=== PATIENT | female | born 1975 | race Caucasian/White ===

== ENCOUNTER 2016-08-26 14:50 | Inpatient (IN) | payer BC, OTHER ==
[2016-08-26] MEDS ORDERED: Sodium Chloride 0.9% 1,000 ML IV ONE (16:26)
[2016-08-26] MEDS ORDERED: HYDROmorphone 1 mg/mL 1mL Syr IVP STA (16:28)
--- NOTE | 2016-08-26 16:33 | ED Physician Chart ---
Chief Complaint/HPI - Patient Information Date Seen:: 08/26/16 Time Seen:: 16:00 Chief Complaint:: left buttocks lesion History of Present Illness:: has had very painful left buttocks lesion for one week. Had subjective fever. Pressure (like sitting) increases the pain. Allergies:: Allergies Allergy/AdvReac Type Severity Reaction Status Date / Time No Known Allergies Allergy Verified 08/26/16 15:12 Vitals:: Vital Signs - 8 hr 08/26/16 15:12 Temp 97.5 F HR 94 RR 22 BP 107/65 O2 Sat % 97 Historian:: Patient Review:: Nurse's Note Reviewed Review of Systems - Review of Systems General/Constitutional: Fever Skin: Skin lesions Head: No headache Eyes: No loss of vision ENT: No earache Neck: No neck pain Cardio Vascular: No chest pain Pulmonary: No SOB GI: No nausea, No vomiting G/U: No dysuria Musculoskeletal: No bone or joint pain Endocrine: No polyuria Psychiatric: No prior psych history Hematopoietic: No bruising Allergic/Immuno: No urticaria Neurological: No syncope Past Medical History - Past Medical History Past Medical History: No significant medical hx Family History: Diabetes Melitus Social History: Smoker, Alcohol, Other (social ETOH) Surgical History: Cholecystectomy Psychiatricy History: None Medication: None Physical Exam - Physical Examination General/Constitutional: Well-developed, well-nourished, Alert Other Gen/Cons comments:: mild distress Head: Atraumatic Eyes: Lids, conjuctiva normal Other Skin comments:: 8 cm of erythema, induration and extreme tenderness left buttocks ENMT: External ears, nose nl Neck: No nuchal rigidity Respiratory: Nl effort/Exclusion Cardio Vascular: RRR GI: No tenderness/rebounding/guarding : No CVA tenderness Extremities: Normal digits & nails Neuro/Psych: Alert/oriented, No focal deficits Misc: Normal back Assessment - Procedures Procedures:: skin cleanse betadine solution with betadine swabs; 1% xylocaine for focal; 1 cm incision with #11 scalpel; less than 1 mm pus out; probed gently with curved hemostat; irrigated with NS; packed loosely with 1/4 inch gauze; bulky dressing with 4x4s. ED Septic Shock - . Is Septic Shock (SBP<90, OR Lactate>4 mmol\L) present?: No - <6hrs of presentation: Vital Signs: Vital Signs - 8 hr 08/26/16 15:12 Temp 97.5 F HR 94 RR 22 BP 107/65 O2 Sat % 97 Reassessment (Disposition) - Reassessment Reassessment Condition:: Improved - Diagnosis Diagnosis:: abscess and cellulitis left hemibuttocks - Patient Disposition Admitted to:: Med/Surg Spoke to:: Blaise Gonsalez Admitting Medical Physician:: Blaise Gonsalez Condition at Disposition:: Stable, Improved
[2016-08-26] MEDS ORDERED: HYDROmorphone 2 mg/mL 1mL Vial ONE (16:40)
[2016-08-26 17:00] LABS: % BASOPHILS 0.7 % (0.0-2.0); % EOSINOPHILS 1.8 % (0.0-5.0); % LYMPHOCYTES 14.5 % (20.0-50.0); % MONOCYTES 8.4 % (2.0-10.0); % NEUTROPHILS 74.6 % (40.0-80.0); HEMATOCRIT 40.3 % (35.0-45.0); HEMOGLOBIN 13.8 gm/dL (11.7-15.5); MEAN CELL VOLUME 93.8 fl (81-100); MEAN CORPUSCULAR HGB CONC 34.1 pg (28.0-36.0); MEAN PLATELET VOLUME 8.4 fl; NEUTROPHILE ABSOLUTE 11.6 Th/cmm (1.8-8.0); PLATELET COUNT 242 Th/cmm (150-400); RED CELL DISTRIBUTION WIDTH 12.3 % (11.5-20.0); WHITE BLOOD COUNT 15.6 Th/cmm (4.8-10.8)
[2016-08-26 17:10] LABS: BUN - UREA NITROGEN 8 mg/dL (7-25); BUN/CREATININE RATIO 11.4; CALCIUM SERUM 9.2 mg/dL (8.6-10.3); CARBON DIOXIDE 25.9 mEq/L (21.0-31.0); CHLORIDE 104 mEq/L (98-107); CREATININE - SERUM 0.7 mg/dL (0.6-1.2); GLUCOSE 98 mg/dL (70-105); POTASSIUM SERUM 3.9 mEq/L (3.5-5.1); SODIUM SERUM 135 mEq/L (136-145)
[2016-08-26] MEDS: Sodium Chloride 0.9% 1,000 ML IV SCH (20:06)
[2016-08-26] MEDS: HYDROmorphone 1 mg/mL 1mL Syr IVP PRN ×2 (20:07→23:21)
[2016-08-26] MEDS ORDERED: HYDROmorphone 1 mg/mL 1mL Syr IVP PRN (23:16)
--- NOTE | 2016-08-27 02:37 | Admit Criteria Form ---
Admit Criteria Forms - Admit Criteria Diagnosis: CELLULITIS Clinical Indications for Admission to Inpatient Care (Place 'X' for any and all applicable criteria): Admission is indicated for ANY ONE of the following(1)(2)(3)(4)(5): [ ]I. Limb-threatening infection [ ]II. High-risk comorbid condition as indicated by ANY ONE of the following: [ ]a) Uncontrolled diabetes (eg, HbA1c greater than 10% (0.1)) [ ]b) Cirrhosis [ ]c) Neutropenia [ ]d) Asplenia [ ]e) Immunosuppression [ ]f) Symptomatic heart failure [ ]III. Failure of outpatient therapy as indicated by ALL of the following: [ ]a) Progression or no improvement after adequate trial (minimum of 48 hours, with longer period for stable lower extremity infection) [ ]b) Adequate antibiotic regimen as indicated by use of ANY ONE of the following: [ ]i) First-generation cephalosporin (e.g., cephalexin) [ ]ii) Antistaphylococcal penicillin (e.g., dicloxacillin) [ ]iii) Penicillin-allergic patient regimen (clindamycin, extended-spectrum fluoroquinolone, or doxycycline) [ ]iv) Resistant organism (eg, methicillin-resistant Staphylococcus aureus) regimen (6) [ ]c) Outpatient intravenous therapy regimen is not appropriate due to ANY ONE of the following. (7)(8)(9)(10): [ ]i) It was tried and was not successful (eg, progression of infection). [ ]ii) It is not available or cannot be arranged in a clinically appropriate time frame (e.g., the next day). [ ]iii) Clinical presentation (eg, acuity of infection, rapidity of progression, confirmed or suspected bacteremia) is judged to require ALL of the following: [ ]1) Immediate initiation of intravenous therapy ( eg, cannot wait for next day) [ ]2) Intensity of patient monitoring and observation (eg, vital sign measurement, checks for infection progression) that cannot be provided at other than inpatient level of care [ ]IV. Mental status changes [ ]V. Bacteremia [ ]. Hemodynamic instability [ ]VII. Suspected necrotizing soft tissue infection (e.g., gas in tissue)(11)( 12) [ ]VIII. Orbital infection (13)(14) [X ]IX. Associated surgical procedure (e.g., abscess drainage, debridement) not amenable to outpatient, emergency department, or observation care [ ]X. Cutaneous gangrene [ ]XI. High fever (temperature greater than 39.5 degrees C (103.1 degrees F) (oral)) not responsive to outpatient, emergency department, or observation care therapy [X ]XIII. Inpatient admission required rather than observation care (Also use Cellulitis: Observation Care as appropriate) because of ANY ONE of the following : [ ]a) Periorbital or perineal infection that is severe or worsening [ ]b) Severe pain requiring acute inpatient management [ ]c) IV fluid to replace significant ongoing (e.g., for over 24 hours) losses (greater than 3L/m2 per day) [ ]d) Compartment syndrome monitoring (17) [ ]e) Strict or protective (eg, laminar flow) isolation [ ]f) Urgent debridement or skin grafting [ ]g) Bone or joint debridement [ ]h) Immediate inpatient surgery [X ]i) Other condition, treatment or monitoring requiring inpatient admission Extended stay beyond goal length of stay may be needed for (1)(18): [ ]a) Necrotizing soft tissue infection or fasciitis [ ]b) Gram-negative infection [ ]c) Methicillin-resistant Staphylococcal aureus (MRSA) infection [ ]d) Peripheral venous insufficiency with cellulitis [ ]e) Extensive edema [ ]f) Sepsis or continued Hemodynamic instability [ ]g) Continued high fever or mental status change [ ]h) Bacteremia [ ]i) Active serious comorbid conditions ( eg, heart failure, renal insufficiency) The original [facility] [employer] content created by [facility] [employer] has been revised. The portions of the content which have been revised are identified through the use of italic text or in bold, and [facility] has neither reviewed nor approved the modified material. All other unmodified content is copyright [facility] Please see references footnoted in the original [facility] edition 2016 Admit Criteria Met?: Yes
[2016-08-27 06:48] LABS: MEAN CELL VOLUME 93.9 fl (81-100); MEAN CORPUSCULAR HEMOGLOBIN 32.8 pg (27.0-31.0); MEAN CORPUSCULAR HGB CONC 34.9 pg (28.0-36.0); MEAN PLATELET VOLUME 7.7 fl; PLATELET COUNT 213 Th/cmm (150-400); RED BLOOD COUNT 3.56 Mil/cmm (3.80-5.10); RED CELL DISTRIBUTION WIDTH 12.8 % (11.5-20.0); WHITE BLOOD COUNT 19.6 Th/cmm (4.8-10.8)
[2016-08-27 06:50] LABS: HEMATOCRIT 33.4 % (35.0-45.0); HEMOGLOBIN 11.7 gm/dL (11.7-15.5)
[2016-08-27 07:06] LABS: ALB/GLOB RATIO 1.1 (1.0-1.8); ALKALINE PHOSPHATASE 132 U/L (34-104); ANION GAP 3.1 (7.0-16.0); BILIRUBIN,TOTAL 0.8 mg/dL (0.3-1.0); BUN - UREA NITROGEN 4 mg/dL (7-25); CALCIUM SERUM 8.2 mg/dL (8.6-10.3); CARBON DIOXIDE 24.4 mEq/L (21.0-31.0); CHLORIDE 106 mEq/L (98-107); CREATININE - SERUM 0.5 mg/dL (0.6-1.2); GLUCOSE 120 mg/dL (70-105); POTASSIUM SERUM 3.5 mEq/L (3.5-5.1); SGOT 133 U/L (13-39); SGPT/ALT 202 U/L (7-52); SODIUM SERUM 130 mEq/L (136-145)
[2016-08-27 07:24] LABS: BAND NEUTROPHILE 5 % (0-10); NEUTROPHILS 77 % (40-80); TOTAL CELLS COUNTED 100
[2016-08-27 07:25] LABS: PLATELET ESTIMATE ADEQUATE (NORMAL); PLATELET MORPHOLOGY NORMAL (NORMAL)
[2016-08-27] MEDS ORDERED: HYDROmorphone 1 mg/mL 1mL Syr IVP PRN (08:32)
--- NOTE | 2016-08-27 08:48 | General Progress Note ---
Subjective - Review of Systems Service Date: 08/27/16 Subjective: I have pain Objective - Results Result Diagrams: 08/27/16 06:45 08/27/16 06:45 Recent Labs: Laboratory Last Values WBC 19.6 Th/cmm (4.8-10.8) H 08/27/16 06:45 RBC 3.56 Mil/cmm (3.80-5.10) L 08/27/16 06:45 Hgb 11.7 gm/dL (11.7-15.5) D 08/27/16 06:45 Hct 33.4 % (35.0-45.0) L D 08/27/16 06:45 MCV 93.9 fl (81-100) 08/27/16 06:45 MCH 32.8 pg (27.0-31.0) H 08/27/16 06:45 MCHC Differential 34.9 pg (28.0-36.0) 08/27/16 06:45 RDW 12.8 % (11.5-20.0) 08/27/16 06:45 Plt Count 213 Th/cmm (150-400) 08/27/16 06:45 MPV 7.7 fl 08/27/16 06:45 Neutrophils % 74.6 % (40.0-80.0) 08/26/16 16:43 Band Neutrophils % 5 % (0-10) 08/27/16 06:45 Lymphocytes % 14.5 % (20.0-50.0) L 08/26/16 16:43 Monocytes % 8.4 % (2.0-10.0) 08/26/16 16:43 Eosinophils % 1.8 % (0.0-5.0) 08/26/16 16:43 Basophils % 0.7 % (0.0-2.0) 08/26/16 16:43 Neutrophils (Manual) 77 % (40-80) 08/27/16 06:45 Lymphocytes 6 % (20-50) L 08/27/16 06:45 Monocytes 12 % (2-10) H 08/27/16 06:45 Platelet Estimate ADEQUATE (NORMAL) 08/27/16 06:45 Platelet Morphology NORMAL (NORMAL) 08/27/16 06:45 RBC Morph Micro Appear NORMAL (NORMAL) 08/27/16 06:45 Sodium 130 mEq/L (136-145) L 08/27/16 06:45 Potassium 3.5 mEq/L (3.5-5.1) 08/27/16 06:45 Chloride 106 mEq/L (98-107) 08/27/16 06:45 Carbon Dioxide 24.4 mEq/L (21.0-31.0) 08/27/16 06:45 Anion Gap 3.1 (7.0-16.0) L 08/27/16 06:45 BUN 4 mg/dL (7-25) L 08/27/16 06:45 Creatinine 0.5 mg/dL (0.6-1.2) L 08/27/16 06:45 Est GFR ( Amer) > 60.0 ml/min (>90) 08/27/16 06:45 Est GFR (Non-Af Amer) > 60.0 ml/min 08/27/16 06:45 BUN/Creatinine Ratio 8.0 08/27/16 06:45 Glucose 120 mg/dL (70-105) H 08/27/16 06:45 Calcium 8.2 mg/dL (8.6-10.3) L 08/27/16 06:45 Total Bilirubin 0.8 mg/dL (0.3-1.0) 08/27/16 06:45 AST 133 U/L (13-39) H 08/27/16 06:45 ALT 202 U/L (7-52) H 08/27/16 06:45 Alkaline Phosphatase 132 U/L (34-104) H 08/27/16 06:45 Total Protein 5.8 gm/dL (6.0-8.3) L 08/27/16 06:45 Albumin 3.0 gm/dL (3.7-5.3) L 08/27/16 06:45 Globulin 2.8 gm/dL 08/27/16 06:45 Albumin/Globulin Ratio 1.1 (1.0-1.8) 08/27/16 06:45 - Physical Exam Vitals and I&O: Vital Signs Temp 98.6 F 08/27/16 08:32 Pulse 90 08/27/16 08:32 Resp 18 08/27/16 08:32 BP 100/59 08/27/16 08:32 Pulse Ox 97 08/27/16 08:32 Intake & Output 08/26/16 08/27/16 08/27/16 18:59 06:59 18:59 Intake Total 500 Balance 500 Intake: Oral 500 Other: # Voids 2 Active Medications: Current Medications Acetaminophen (Tylenol) 650 mg PO Q6H PRN PRN Reason: Pain or Fever >101 Stop: 10/25/16 18:46 Last Admin: 08/26/16 23:11 Dose: 650 mg Hydromorphone HCl (Dilaudid) 2 mg IVP Q4HR PRN PRN Reason: Pain (Moderate) Stop: 10/25/16 23:15 Sodium Chloride (Nacl 0.9%) 1,000 mls @ 100 mls/hr IV .Q10H [facility] Stop: 10/25/16 18:59 Last Admin: 08/26/16 20:06 Dose: 100 mls/hr Vancomycin HCl 0.75 gm/ Sodium (Chloride) 250 mls @ 165 mls/hr IV Q8H [facility] Stop: 10/26/16 00:59 Last Admin: 08/27/16 03:18 Dose: 165 mls/hr Piperacillin Sod/Tazobactam (Sod 3.375 gm/ Sodium Chloride) 50 mls @ 100 mls/ hr IV Q6HR [facility] Stop: 10/26/16 08:44 Miscellaneous (Vancomycin Iv Per Pharmacy) 1 ea MC DAILY [facility] Stop: 10/26/16 08:59 Ondansetron HCl (Zofran) 4 mg IV Q6H PRN PRN Reason: Nausea / Vomiting Stop: 10/25/16 18:46 General: Alert, Oriented x3, Severe distress HEENT: Atraumatic Neck: Supple Cardiovascular: Regular rate Lungs: Clear to auscultation Abdomen: Bowel sounds Extremities: Other (Pain at movement of left leg, There is an open wound in left buttock with redness of 30 cm around) Neurological: Other (Non ambulatory now due to pain) Skin: Other (Redness of left buttock 30 cm round) Psych/Mental Status: Mental status NL Assessment/Plan - Problem List Patient Problems: All Active Problems LEFT BUTTOCK SKIN LESION (Acute) - Assessment Assessment: Patient is awake, in distress. Dx: abcess and cellulitis of left bucttock - Plan Plan: patient in [facility], and pain management
[2016-08-27] MEDS: Sodium Chloride 0.9% 1,000 ML IV SCH (10:10)
--- NOTE | 2016-08-27 12:06 | History & Physical ---
CHIEF COMPLAINT: Abscess in the left buttock. HISTORY OF PRESENT ILLNESS: This is the case of a 40-year-old female who referred 1 week ago started when ____ ampulla in the left buttock. She started to manipulate the ampulla ____ started go grow and became ____ painful, reason why patient came to ER for evaluation and treatment. PAST MEDICAL HISTORY: Noncontributory. FAMILY HISTORY: Diabetes mellitus. SOCIAL HISTORY: The patient smokes, drinks alcohol socially and marijuana occasionally. PAST SURGICAL HISTORY: Cholecystectomy. MEDICATIONS: None. REVIEW OF SYSTEMS: LUNGS: The patient denies shortness of breath. HEART: The patient denies chest pain. ABDOMEN: Unremarkable. EXTREMITIES: The patient referred intense pain in the left buttock. PHYSICAL EXAMINATION: GENERAL: Reveal fairly nourished and developed female, awake, alert, in distress secondary to pain. LUNGS: Bilateral air entry. No wheezing, no crackles. ABDOMEN: Soft, nontender, bowel sound present. EXTREMITIES: There is an abscess open when redness of the left ____ around with diameter of ____ cm around. Extremities, pain on movement of the left extremity. NEUROLOGIC: The patient is awake, alert, in acute distress secondary to pain. No neurological deficit at this moment. IMPRESSION: Sepsis secondary to abscess and cellulitis in the left buttock. PLAN: 1. The patient will be admitted in the medical surgical floor. 2. Dilaudid for pain. 3. Vancomycin. 4. Zosyn. 5. Regular diet. 6. CBC, CMP at a.m. JOB# [id number]
[2016-08-27] MEDS: HYDROmorphone 1 mg/mL 1mL Syr IVP PRN ×2 (16:20→20:56)
[2016-08-28] MEDS: HYDROmorphone 1 mg/mL 1mL Syr IVP PRN ×4 (03:49→20:39)
--- NOTE | 2016-08-28 05:11 | Consultation ---
Consult Note - Consult Note Service Date: 08/28/16 Referring Physician: Blaise Gonsalez Consult Note: PHYSICIAN Consultation Note: Date of Admission: 08/26/16 Purpose of Consultation: SEPSIS AND LEFT GLUTEAL ABSCESS. Chief Complaint: FEVER AND LEFT LEG PAIN. History of Present Illness: Patient AL SHETH was admitted to location Medical/Surgical Unit I with LEFT BUTTOCK ABSCESS. 40 y F with history of DM2 went to camping in [facility] recently. She developed pain and swelling in left buttock laterally over last 4 days and it got worse with unbearable pain. It was associated with fever. So, she came to the ED for further evaluation. On initial evaluation, her temperature was 97.5 degree F and her temperature went up to 100.3 degree F; and WBC Count was 15,600. I and D was performed in the ED and the small incision wound was packed. Sepsis w/u was performed and blood cultures grew GPC in clusters. She was started on vanco IV and zosyn. ID consult was called for further evaluation. Even after I and D was performed in the ED, her swelling, pain and redness had been getting worse. Allergies Allergy/AdvReac Type Severity Reaction Status Date / Time No Known Allergies Allergy Verified 08/26/16 15:12 Vital Signs Temp 98.3 F 08/28/16 04:00 Pulse 72 08/28/16 04:00 Resp 19 08/28/16 04:00 BP 109/52 08/28/16 04:00 Pulse Ox 98 08/28/16 04:00 Intake & Output 08/27/16 08/27/16 08/28/16 06:59 18:59 06:59 Intake Total 1750 600 Balance 1750 600 Intake: Intake, IV Amount 1250 600 Piperacillin Sodium/ 100 Tazobact 3.375 gm In Sodium Chloride 0.9% 50 ml @ 100 mls/hr IV Q6HR [facility] Rx#:[id number] Sodium Chloride 0.9% 1, 1000 000 ml @ 100 mls/hr IV . Q10H [facility] Rx#:[id number] Vancomycin HCl 0.75 gm In 250 500 Sodium Chloride 0.9% 250 ml @ 165 mls/hr IV Q8H [facility] Rx#:[id number] Oral 500 Other: # Voids 2 Laboratory Results - last 24 hr 08/27/16 08/27/16 06:45 06:45 WBC 19.6 H RBC 3.56 L Hgb 11.7 D Hct 33.4 L D MCV 93.9 MCH 32.8 H MCHC Differential 34.9 RDW 12.8 Plt Count 213 MPV 7.7 Band Neutrophils % 5 Neutrophils (Manual) 77 Lymphocytes 6 L Monocytes 12 H Platelet Estimate ADEQUATE Platelet Morphology NORMAL RBC Morph Micro Appear NORMAL Sodium 130 L Potassium 3.5 Chloride 106 Carbon Dioxide 24.4 Anion Gap 3.1 L BUN 4 L Creatinine 0.5 L Est GFR ( Amer) > 60.0 Est GFR (Non-Af Amer) > 60.0 BUN/Creatinine Ratio 8.0 Glucose 120 H Calcium 8.2 L Total Bilirubin 0.8 AST 133 H ALT 202 H Alkaline Phosphatase 132 H Total Protein 5.8 L Albumin 3.0 L Globulin 2.8 Albumin/Globulin Ratio 1.1 Home Medication Medication Instructions Recorded Type NK [No Home Meds] 08/26/16 History Current Medications Generic Name Dose Route Start Last Admin Trade Name Freq PRN Reason Stop Dose Admin Acetaminophen 650 mg 08/26/16 18:47 08/27/16 21:14 Tylenol PO 10/25/16 18:46 650 mg Q6H PRN Administration Pain or Fever >101 Hydromorphone HCl 2 mg 08/27/16 11:04 08/28/16 03:49 Dilaudid IVP 10/26/16 08:31 2 mg Q4H PRN Administration Pain (Moderate) Sodium Chloride 1,000 mls @ 100 mls/hr 08/26/16 19:00 08/27/16 10:10 Nacl 0.9% IV 10/25/16 18:59 100 mls/hr .Q10H [facility] Administration Vancomycin HCl 0.75 gm/ Sodium 250 mls @ 165 mls/hr 08/27/16 01:00 08/28/16 01:45 Chloride IV 10/26/16 00:59 165 mls/hr Q8H [facility] Administration Piperacillin Sod/Tazobactam 50 mls @ 100 mls/hr 08/27/16 12:00 08/28/16 00:30 Sod 3.375 gm/ Sodium Chloride IV 10/26/16 11:59 100 mls/hr Q6HR [facility] Administration Miscellaneous 1 ea 08/27/16 09:00 Vancomycin Iv Per Pharmacy 10/26/16 08:59 DAILY [facility] Ondansetron HCl 4 mg 08/26/16 18:47 08/27/16 19:18 Zofran IV 10/25/16 18:46 4 mg Q6H PRN Administration Nausea / Vomiting Review of Systems: A 12 point ROS was reviewed with the pertinent positive and negatives noted in the HPI. GENERAL/ CONSTITUTIONAL: c/o fever, denies any chills. denies any weakness. HEENT: Denies nay ear pain or discharge. denies sore throat. RS: Denies any cough, shortness of breath. CVS: Denies any CP, palpitations or leg swelling. GI: Denies any abdominal pains, diarrhea, or constipations. feeling nauseated. Gu: Denies any dysuria, or hematuria. [employer]: denies any headache, dizziness, focal weakness or seizures. MS: C/o left hip pains. SKIN: redness, and tender swelling of the left buttocks laterally. Past Medical History Depression No Anxiety No Social History Smoking Status Smoker, status unknown Family Medical History: Nonsignificant. Physical Exam: General: Well nousrished and well developed. HEENT: EOMI Bilaterally, PERRLA Bilaterally, Head is normocephalic, atraumatic on inspection. Cardio: +S1/S2 Auscultated, RRR, no murmurs/rubs/gallops noted Respiratory: Clear to Auscultate Bilaterally Abdominal: Soft, Nondistended, Nontender to palpation x 4 quadrants Extremities: No Edema noted in the lower extremities. She has tender swellinr with surround erythema around the small incision wound with sign of necrosis, around the wound, which is packed with iodoform. It is draining yellow pus. Neurological: Alert and Oriented x3, Cranial Nerves II-XII intact bilaterally, Gait Steady, No Focal Deficits noted. Assessment/Plan: 1. Staphylococcal sepsis likely from the left gluteal area. 2. Left gluteal abscess with cellulitis. 3. DM2. 4. Nausea 2/2 meds and sepsis. Recommendations/s: Continue vanco IV and Zosyn. Depending on the culture report decide final antibiotic therapy. Consult Dr Akins for evaluation and ? I and D. Rep[eat blood cultures and echo. wound cultures. Thank you Dr Gonsalez for invoving me in taking care of this patient. Signed, Andrea Domínguez M.D. [id number]
[2016-08-28 06:49] LABS: ALKALINE PHOSPHATASE 142 U/L (34-104); ANION GAP 7.1 (7.0-16.0); BUN - UREA NITROGEN 4 mg/dL (7-25); BUN/CREATININE RATIO 6.7; CALCIUM SERUM 8.5 mg/dL (8.6-10.3); CARBON DIOXIDE 25.4 mEq/L (21.0-31.0); CHLORIDE 104 mEq/L (98-107); CREATININE - SERUM 0.6 mg/dL (0.6-1.2); GLUCOSE 116 mg/dL (70-105); POTASSIUM SERUM 3.5 mEq/L (3.5-5.1); SGOT 55 U/L (13-39); SGPT/ALT 169 U/L (7-52); SODIUM SERUM 133 mEq/L (136-145)
[2016-08-28 07:22] LABS: HEMATOCRIT 30.9 % (35.0-45.0); HEMOGLOBIN 10.9 gm/dL (11.7-15.5); MEAN CELL VOLUME 93.2 fl (81-100); MEAN CORPUSCULAR HEMOGLOBIN 32.9 pg (27.0-31.0); MEAN CORPUSCULAR HGB CONC 35.3 pg (28.0-36.0); MEAN PLATELET VOLUME 8.8 fl; PLATELET COUNT 212 Th/cmm (150-400); RED BLOOD COUNT 3.31 Mil/cmm (3.80-5.10); RED CELL DISTRIBUTION WIDTH 12.5 % (11.5-20.0)
[2016-08-28 07:27] LABS: WHITE BLOOD COUNT 14.7 Th/cmm (4.8-10.8)
[2016-08-28] MEDS ORDERED: Morphine Sulfate 2 mg/mL 1mL Syr IVP PRN (08:08)
[2016-08-28] MEDS ORDERED: fentaNYL Citrate 100 mcg/2mL Vial ONE (08:38)
[2016-08-28] MEDS ORDERED: Midazolam 1mg/ml 2 ml vial IV ONE (08:38)
[2016-08-28] MEDS ORDERED: Meperidine 25 mg/mL 1mL Syr IVP PRN ×2 (08:57→10:14)
[2016-08-28] MEDS ORDERED: Lactated Ringer 1,000 ML IV SCH ×2 (09:00)
[2016-08-28] MEDS ORDERED: Meperidine 25 mg/mL 1mL Syr ONE (09:05)
--- NOTE | 2016-08-28 09:54 | Consultation ---
REFERRING PHYSICIAN: Dr. Gonsalez. REASON FOR CONSULTATION: Abscess, left buttock. Thank you for referring this patient to me. HISTORY OF PRESENT ILLNESS: This is a 40-year-old female who started having infection in the left buttocks about a week ago. She came in to the Emergency Room 2 days ago and incision and drainage was done on a limited basis because the patient could not tolerate pain. She has diabetes mellitus and drinks alcohol socially, marijuana occasionally and also smoker. PAST MEDICAL HISTORY: Cholecystectomy. LABORATORY STUDIES: Showed WBC elevation to 15,000. Rest of the labs are essentially normal. Chest x-ray and EKG as well. PHYSICAL EXAMINATION: GENERAL: The patient is well oriented. SKIN: There is a large abscess in the left buttocks measuring about 15 cm across with a central area that had been with an incision and iodoform gauze. IMPRESSION: 1. Buttocks, left abscess, large and complicated. 2. Diabetes mellitus, poor control. RECOMMENDATION: Incision and drainage of the abscess. We will do under IV sedation. JOB# [id number]
--- NOTE | 2016-08-28 09:57 | Operative Report ---
PREOPERATIVE DIAGNOSES: 1. Abscess complicated, left buttocks. 2. Diabetes mellitus with poor control. POSTOPERATIVE DIAGNOSES: 1. Abscess complicated, left buttocks. 2. Diabetes mellitus with poor control. OPERATION DONE: 1. Incision and drainage of abscess, left buttocks. 2. Culture and sensitivity. SURGEON: Mable Weller M.D. ANESTHESIA: MAC anesthesia. ANESTHESIOLOGIST: Marge Abrams M.D. DETAILS OF PROCEDURE: The patient was given IV sedation. The left buttocks was prepped with Betadine and draped in appropriate manner. Old iodoform gauze was removed and knife was used to enlarge incision to about 1 inch. Thick purulent material was drained. The finger was introduced to unroof all abscess cavity. Following hemostasis with cautery, irrigation with saline solution was carried out. The wound was then packed with iodoform gauze. The patient tolerated the procedure well. JOB# [id number]
[2016-08-28] MEDS: Sodium Chloride 0.9% 1,000 ML IV SCH (10:15)
--- NOTE | 2016-08-28 10:26 | Diagnostic Imaging Report ---
Abdominal ultrasound HISTORY: Abnormal liver function test The liver appears enlarged. No focal lesions. The gallbladder is not seen consistent with the patient's surgical history. No biliary dilatation. The pancreas cannot be seen due to bowel gas. No focal renal lesions. No hydronephrosis. Spleen is normal in size. No other retroperitoneal or intra-abdominal abnormalities. IMPRESSION: 1. Hepatomegaly 2. No other acute abnormalities 3. Nonvisualization of the gallbladder consistent with the patient's surgical history.
--- NOTE | 2016-08-28 10:31 | Diagnostic Imaging Report ---
Portable chest x-ray History: Shortness of breath Allowing for portable technique the heart size is normal. No focal pulmonary parenchymal processes. No hilar or mediastinal abnormalities. Impression: No acute abnormalities.
[2016-08-28 11:07] LABS: EOSINOPHIL 1 % (0-5); NEUTROPHILS 82 % (40-80); TOTAL CELLS COUNTED 100
[2016-08-28 11:08] LABS: PLATELET ESTIMATE ADEQUATE (NORMAL); PLATELET MORPHOLOGY NORMAL (NORMAL)
--- NOTE | 2016-08-28 12:08 | General Progress Note ---
Subjective - Review of Systems Service Date: 08/28/16 Subjective: Pain is less. Objective - Results Result Diagrams: 08/28/16 06:06 08/28/16 06:06 Recent Labs: Laboratory Last Values WBC 14.7 Th/cmm (4.8-10.8) H D 08/28/16 06:06 RBC 3.31 Mil/cmm (3.80-5.10) L 08/28/16 06:06 Hgb 10.9 gm/dL (11.7-15.5) L 08/28/16 06:06 Hct 30.9 % (35.0-45.0) L 08/28/16 06:06 MCV 93.2 fl (81-100) 08/28/16 06:06 MCH 32.9 pg (27.0-31.0) H 08/28/16 06:06 MCHC Differential 35.3 pg (28.0-36.0) 08/28/16 06:06 RDW 12.5 % (11.5-20.0) 08/28/16 06:06 Plt Count 212 Th/cmm (150-400) 08/28/16 06:06 MPV 8.8 fl 08/28/16 06:06 Neutrophils % 74.6 % (40.0-80.0) 08/26/16 16:43 Band Neutrophils % 5 % (0-10) 08/27/16 06:45 Lymphocytes % 14.5 % (20.0-50.0) L 08/26/16 16:43 Monocytes % 8.4 % (2.0-10.0) 08/26/16 16:43 Eosinophils % 1.8 % (0.0-5.0) 08/26/16 16:43 Basophils % 0.7 % (0.0-2.0) 08/26/16 16:43 Neutrophils (Manual) 82 % (40-80) H 08/28/16 06:06 Lymphocytes 10 % (20-50) L 08/28/16 06:06 Monocytes 7 % (2-10) 08/28/16 06:06 Eosinophils 1 % (0-5) 08/28/16 06:06 Platelet Estimate ADEQUATE (NORMAL) 08/28/16 06:06 Platelet Morphology NORMAL (NORMAL) 08/28/16 06:06 RBC Morph Micro Appear NORMAL (NORMAL) 08/28/16 06:06 Sodium 133 mEq/L (136-145) L 08/28/16 06:06 Potassium 3.5 mEq/L (3.5-5.1) 08/28/16 06:06 Chloride 104 mEq/L (98-107) 08/28/16 06:06 Carbon Dioxide 25.4 mEq/L (21.0-31.0) 08/28/16 06:06 Anion Gap 7.1 (7.0-16.0) 08/28/16 06:06 BUN 4 mg/dL (7-25) L 08/28/16 06:06 Creatinine 0.6 mg/dL (0.6-1.2) 08/28/16 06:06 Est GFR ( Amer) > 60.0 ml/min (>90) 08/28/16 06:06 Est GFR (Non-Af Amer) > 60.0 ml/min 08/28/16 06:06 BUN/Creatinine Ratio 6.7 08/28/16 06:06 Glucose 116 mg/dL (70-105) H 08/28/16 06:06 Calcium 8.5 mg/dL (8.6-10.3) L 08/28/16 06:06 Total Bilirubin 1.0 mg/dL (0.3-1.0) 08/28/16 06:06 AST 55 U/L (13-39) H 08/28/16 06:06 ALT 169 U/L (7-52) H 08/28/16 06:06 Alkaline Phosphatase 142 U/L (34-104) H 08/28/16 06:06 Total Protein 6.0 gm/dL (6.0-8.3) 08/28/16 06:06 Albumin 3.0 gm/dL (3.7-5.3) L 08/28/16 06:06 Globulin 3.0 gm/dL 08/28/16 06:06 Albumin/Globulin Ratio 1.0 (1.0-1.8) 08/28/16 06:06 Vancomycin Trough 8.4 ug/mL (10-20) L 08/28/16 10:10 Hep Bs Antigen Negative (Negative) 08/27/16 06:05 Hepatitis C Antibody <0.1 s/co ratio (0.0-0.9) 08/27/16 06:05 - Physical Exam Vitals and I&O: Vital Signs Temp 99.1 F 08/28/16 07:37 Pulse 91 08/28/16 07:37 Resp 17 08/28/16 08:00 BP 88/41 08/28/16 07:37 Pulse Ox 99 08/28/16 07:37 Intake & Output 08/27/16 08/28/16 08/28/16 18:59 06:59 18:59 Intake Total 600 1050 Balance 600 1050 Intake: Intake, IV Amount 600 1050 Piperacillin Sodium/ 100 50 Tazobact 3.375 gm In Sodium Chloride 0.9% 50 ml @ 100 mls/hr IV Q6HR [facility] Rx#:[id number] Sodium Chloride 0.9% 1, 1000 000 ml @ 100 mls/hr IV . Q10H [facility] Rx#:[id number] Vancomycin HCl 0.75 gm In 500 Sodium Chloride 0.9% 250 ml @ 165 mls/hr IV Q8H [facility] Rx#:[id number] Active Medications: Current Medications Acetaminophen (Tylenol) 650 mg PO Q6H PRN PRN Reason: Pain or Fever >101 Stop: 10/25/16 18:46 Last Admin: 08/27/16 21:14 Dose: 650 mg Hydromorphone HCl (Dilaudid) 1 mg IVP Q4HR PRN PRN Reason: severe pain. Stop: 10/27/16 08:17 Last Admin: 08/28/16 10:24 Dose: 1 mg Sodium Chloride (Nacl 0.9%) 1,000 mls @ 100 mls/hr IV .Q10H [facility] Stop: 10/25/16 18:59 Last Admin: 08/28/16 10:15 Dose: 100 mls/hr Piperacillin Sod/Tazobactam (Sod 3.375 gm/ Sodium Chloride) 50 mls @ 100 mls/ hr IV Q6HR [facility] Stop: 10/26/16 11:59 Last Admin: 08/28/16 06:05 Dose: 100 mls/hr Vancomycin HCl 0.75 gm/ Sodium (Chloride) 250 mls @ 165 mls/hr IV Q8HR@0300, 1100,1900 [facility] Stop: 10/27/16 10:59 Lactated Ringer's (Lactated Ringer) 1,000 mls @ 0 mls/hr IV .Q0M [facility] PRN Reason: TKO Stop: 08/29/16 08:59 Lactated Ringer's (Lactated Ringer) 1,000 mls @ 0 mls/hr IV .Q0M [facility] PRN Reason: TKO Stop: 08/29/16 08:59 Meperidine HCl (Demerol) 25 mg IVP Q24HR PRN PRN Reason: post operative pain Stop: 08/29/16 08:56 Miscellaneous (Vancomycin Iv Per Pharmacy) 1 ea [facility] DAILY [facility] Stop: 10/26/16 08:59 Morphine Sulfate (Morphine) 1 mg IVP Q4HR PRN PRN Reason: breakthrough pain. Stop: 10/27/16 08:07 Ondansetron HCl (Zofran) 4 mg IV Q6H PRN PRN Reason: Nausea / Vomiting Stop: 10/25/16 18:46 Last Admin: 08/27/16 19:18 Dose: 4 mg Ondansetron HCl (Zofran) 4 mg IV Q24HR PRN PRN Reason: POST OPERATIVE N/V Stop: 10/27/16 08:56 General: Alert, Oriented x3, Mild distress HEENT: Atraumatic Neck: Supple Cardiovascular: Regular rate Lungs: Clear to auscultation Abdomen: Bowel sounds, Soft Extremities: Other (No edema) Neurological: Other (Non ambulatory at this moment) Skin: Other (There is an surgical wound cover with melanie. Redness around wound) Psych/Mental Status: Mental status NL Assessment/Plan - Problem List Patient Problems: All Active Problems LEFT BUTTOCK SKIN LESION (Acute) - Assessment Assessment: Patient is awake, in moderate distress due to pain. Dx: abcess and cellulitis of left bucttock, DM - Plan Plan: Abcess was drained by surgeon. WBC improved. patient in Vanco, Sozyn, and pain management
[2016-08-28] MEDS: INSULIN ASPART SLIDING SCALE 100 UNITS/ML UNIT SUBQ SCH ×2 (16:13→23:28)
[2016-08-28 22:49] LABS: INR 0.98 (0.5-1.4); PROTHROMBIN TIME (TEST) 9.7 SECONDS (9.5-11.5)
[2016-08-29] MEDS: HYDROmorphone 1 mg/mL 1mL Syr IVP PRN ×6 (00:27→23:39)
[2016-08-29] MEDS: Sodium Chloride 0.9% 1,000 ML IV SCH (04:59)
[2016-08-29 06:26] LABS: % BASOPHILS 0.4 % (0.0-2.0); % EOSINOPHILS 2.5 % (0.0-5.0); % LYMPHOCYTES 17.2 % (20.0-50.0); % MONOCYTES 8.1 % (2.0-10.0); % NEUTROPHILS 71.8 % (40.0-80.0); HEMATOCRIT 29.1 % (35.0-45.0); HEMOGLOBIN 10.3 gm/dL (11.7-15.5); MEAN CELL VOLUME 93.2 fl (81-100); MEAN CORPUSCULAR HEMOGLOBIN 32.8 pg (27.0-31.0); MEAN CORPUSCULAR HGB CONC 35.3 pg (28.0-36.0); PLATELET COUNT 226 Th/cmm (150-400); RED BLOOD COUNT 3.13 Mil/cmm (3.80-5.10); RED CELL DISTRIBUTION WIDTH 12.7 % (11.5-20.0)
[2016-08-29 06:44] LABS: ALKALINE PHOSPHATASE 175 U/L (34-104); ANION GAP 9.6 (7.0-16.0); BILIRUBIN,TOTAL 0.7 mg/dL (0.3-1.0); BUN - UREA NITROGEN 4 mg/dL (7-25); BUN/CREATININE RATIO 5.7; CALCIUM SERUM 8.5 mg/dL (8.6-10.3); CARBON DIOXIDE 25.1 mEq/L (21.0-31.0); CHLORIDE 106 mEq/L (98-107); CREATININE - SERUM 0.7 mg/dL (0.6-1.2); GLUCOSE 93 mg/dL (70-105); POTASSIUM SERUM 3.7 mEq/L (3.5-5.1); SGOT 42 U/L (13-39); SGPT/ALT 140 U/L (7-52); SODIUM SERUM 137 mEq/L (136-145)
[2016-08-29 07:09] LABS: WHITE BLOOD COUNT 11.1 Th/cmm (4.8-10.8)
--- NOTE | 2016-08-29 08:12 | General Progress Note ---
Subjective - Review of Systems Service Date: 08/29/16 Subjective: I feel better Objective - Results Result Diagrams: 08/29/16 06:11 08/29/16 06:11 Recent Labs: Laboratory Last Values WBC 11.1 Th/cmm (4.8-10.8) H D 08/29/16 06:11 RBC 3.13 Mil/cmm (3.80-5.10) L 08/29/16 06:11 Hgb 10.3 gm/dL (11.7-15.5) L 08/29/16 06:11 Hct 29.1 % (35.0-45.0) L 08/29/16 06:11 MCV 93.2 fl (81-100) 08/29/16 06:11 MCH 32.8 pg (27.0-31.0) H 08/29/16 06:11 MCHC Differential 35.3 pg (28.0-36.0) 08/29/16 06:11 RDW 12.7 % (11.5-20.0) 08/29/16 06:11 Plt Count 226 Th/cmm (150-400) 08/29/16 06:11 MPV 8.0 fl 08/29/16 06:11 Neutrophils % 71.8 % (40.0-80.0) 08/29/16 06:11 Band Neutrophils % 5 % (0-10) 08/27/16 06:45 Lymphocytes % 17.2 % (20.0-50.0) L 08/29/16 06:11 Monocytes % 8.1 % (2.0-10.0) 08/29/16 06:11 Eosinophils % 2.5 % (0.0-5.0) 08/29/16 06:11 Basophils % 0.4 % (0.0-2.0) 08/29/16 06:11 Neutrophils (Manual) 82 % (40-80) H 08/28/16 06:06 Lymphocytes 10 % (20-50) L 08/28/16 06:06 Monocytes 7 % (2-10) 08/28/16 06:06 Eosinophils 1 % (0-5) 08/28/16 06:06 Platelet Estimate ADEQUATE (NORMAL) 08/28/16 06:06 Platelet Morphology NORMAL (NORMAL) 08/28/16 06:06 RBC Morph Micro Appear NORMAL (NORMAL) 08/28/16 06:06 PT 9.7 SECONDS (9.5-11.5) 08/28/16 07:59 INR 0.98 (0.5-1.4) 08/28/16 07:59 PTT (Actin FS) 30.0 SECONDS (26.0-38.0) 08/28/16 07:59 Sodium 137 mEq/L (136-145) 08/29/16 06:11 Potassium 3.7 mEq/L (3.5-5.1) 08/29/16 06:11 Chloride 106 mEq/L (98-107) 08/29/16 06:11 Carbon Dioxide 25.1 mEq/L (21.0-31.0) 08/29/16 06:11 Anion Gap 9.6 (7.0-16.0) 08/29/16 06:11 BUN 4 mg/dL (7-25) L 08/29/16 06:11 Creatinine 0.7 mg/dL (0.6-1.2) 08/29/16 06:11 Est GFR ( Amer) > 60.0 ml/min (>90) 08/29/16 06:11 Est GFR (Non-Af Amer) > 60.0 ml/min 08/29/16 06:11 BUN/Creatinine Ratio 5.7 08/29/16 06:11 Glucose 93 mg/dL (70-105) 08/29/16 06:11 POC Glucose 110 MG/DL (70 - 105) H 08/28/16 23:22 Calcium 8.5 mg/dL (8.6-10.3) L 08/29/16 06:11 Total Bilirubin 0.7 mg/dL (0.3-1.0) 08/29/16 06:11 AST 42 U/L (13-39) H 08/29/16 06:11 ALT 140 U/L (7-52) H 08/29/16 06:11 Alkaline Phosphatase 175 U/L (34-104) H 08/29/16 06:11 Total Protein 5.6 gm/dL (6.0-8.3) L 08/29/16 06:11 Albumin 2.8 gm/dL (3.7-5.3) L 08/29/16 06:11 Globulin 2.8 gm/dL 08/29/16 06:11 Albumin/Globulin Ratio 1.0 (1.0-1.8) 08/29/16 06:11 Vancomycin Trough 9.9 ug/mL (10-20) L 08/29/16 02:00 Hep Bs Antigen Negative (Negative) 08/27/16 06:05 Hepatitis C Antibody <0.1 s/co ratio (0.0-0.9) 08/27/16 06:05 - Physical Exam Vitals and I&O: Vital Signs Temp 97.4 F 08/29/16 08:00 Pulse 86 08/29/16 08:00 Resp 19 08/29/16 08:00 BP 99/60 08/29/16 08:00 Pulse Ox 100 08/29/16 08:00 Intake & Output 08/28/16 08/29/16 08/29/16 18:59 06:59 18:59 Intake Total 350 1350 Output Total 300 Balance 350 1050 Weight (lbs) 68.039 kg Intake: Intake, IV Amount 350 1300 Piperacillin Sodium/ 100 50 Tazobact 3.375 gm In Sodium Chloride 0.9% 50 ml @ 100 mls/hr IV Q6HR [facility] Rx#:[id number] Sodium Chloride 0.9% 1, 1000 000 ml @ 100 mls/hr IV . Q10H [facility] Rx#:[id number] Vancomycin HCl 0.75 gm In 250 250 Sodium Chloride 0.9% 250 ml @ 165 mls/hr IV Q8HR@ 0300,1100,1900 [facility] Rx#: [id number] Oral 50 Output: Urine 300 Active Medications: Current Medications Acetaminophen (Tylenol) 650 mg PO Q6H PRN PRN Reason: Pain or Fever >101 Stop: 10/25/16 18:46 Last Admin: 08/29/16 06:48 Dose: 650 mg Hydromorphone HCl (Dilaudid) 1 mg IVP Q4HR PRN PRN Reason: severe pain. Stop: 10/27/16 08:17 Last Admin: 08/29/16 05:00 Dose: 1 mg Sodium Chloride (Nacl 0.9%) 1,000 mls @ 100 mls/hr IV .Q10H [facility] Stop: 10/25/16 18:59 Last Admin: 08/29/16 04:59 Dose: 100 mls/hr Piperacillin Sod/Tazobactam (Sod 3.375 gm/ Sodium Chloride) 50 mls @ 100 mls/ hr IV Q6HR [facility] Stop: 10/26/16 11:59 Last Admin: 08/29/16 06:11 Dose: 100 mls/hr Vancomycin HCl 0.75 gm/ Sodium (Chloride) 250 mls @ 165 mls/hr IV Q8HR@0300, 1100,1900 [facility] Stop: 10/27/16 10:59 Last Admin: 08/29/16 06:38 Dose: 165 mls/hr Lactated Ringer's (Lactated Ringer) 1,000 mls @ 0 mls/hr IV .Q0M [facility] PRN Reason: TKO Stop: 08/29/16 08:59 Lactated Ringer's (Lactated Ringer) 1,000 mls @ 0 mls/hr IV .Q0M [facility] PRN Reason: TKO Stop: 08/29/16 08:59 Insulin Aspart (Novolog Insulin Sliding Scale) 0 units SUBQ ACHS [facility] PRN Reason: Protocol Stop: 10/27/16 16:29 Last Admin: 08/28/16 23:28 Dose: Not Given Meperidine HCl (Demerol) 25 mg IVP Q24HR PRN PRN Reason: post operative pain Stop: 08/29/16 08:56 Miscellaneous (Vancomycin Iv Per Pharmacy) 1 ea [facility] DAILY [facility] Stop: 10/26/16 08:59 Morphine Sulfate (Morphine) 1 mg IVP Q4HR PRN PRN Reason: breakthrough pain. Stop: 10/27/16 08:07 Last Admin: 08/28/16 14:10 Dose: 1 mg Ondansetron HCl (Zofran) 4 mg IV Q6H PRN PRN Reason: Nausea / Vomiting Stop: 10/25/16 18:46 Last Admin: 08/29/16 05:00 Dose: 4 mg Ondansetron HCl (Zofran) 4 mg IV Q24HR PRN PRN Reason: POST OPERATIVE N/V Stop: 10/27/16 08:56 General: Alert, Oriented x3, Cooperative HEENT: Atraumatic Neck: Supple Cardiovascular: Regular rate Lungs: Clear to auscultation Abdomen: Bowel sounds, Soft Extremities: Other (No edema) Neurological: Other (Unstable gait) Skin: Other (Redness in left buttock improving surgical wound cover with melanie) Psych/Mental Status: Mental status NL Assessment/Plan - Problem List Patient Problems: All Active Problems LEFT BUTTOCK SKIN LESION (Acute) - Assessment Assessment: Patient is awake, Alert, pain is less. Dx: abcess and cellulitis of left bucttock, DM - Plan Plan: Abcess was drained by surgeon. WBC improved. patient in Vanco, Sozyn, and pain management
[2016-08-29] MEDS: INSULIN ASPART SLIDING SCALE 100 UNITS/ML UNIT SUBQ SCH ×2 (11:35→17:15)
--- NOTE | 2016-08-29 19:31 | Cardiology ---
ECHOCARDIOGRAM REPORT: The patient of Dr. Gonsalez. M-MODE ECHOCARDIOGRAM: Mitral Valve: Anterior leaflet of the mitral valve shows normal excursion, EF velocity. Posterior leaflet of the mitral valve shows normal excursion. Left ventricular posterior wall shows increased thickness, normal excursion. Interventricular septum shows increased thickness, normal excursion, hypertrophy of the left ventricle, ejection fraction 60%. Left atrium normal. Aortic root shows normal dimension, normal excursion of aortic leaflets. CONCLUSION: Hypertrophy of the left ventricle, ejection fraction 60%. 2D ECHO: Long axis view showed normal-sized left ventricle with hypertrophy of the left ventricle. Left atrium normal. Aortic root shows normal dimension, normal excursion of aortic leaflets. Short axis view of mitral valve normal. Short axis view of aortic valve normal. Apical four-chamber view showed normal-sized left ventricle with hypertrophy of the left ventricle. Left atrium normal. Right ventricular cavity, right atrium normal. No pericardial effusion. CONCLUSION: Hypertrophy of the left ventricle, ejection fraction 60%. Doppler study shows prominent A wave consistent with poor compliance of left ventricle with mild tricuspid regurgitation. [facility]# [id number]
[2016-08-30] MEDS: HYDROmorphone 1 mg/mL 1mL Syr IVP PRN ×3 (03:59→11:33)
[2016-08-30] MEDS: Sodium Chloride 0.9% 1,000 ML IV SCH (04:05)
[2016-08-30 06:56] LABS: % BASOPHILS 0.5 % (0.0-2.0); % EOSINOPHILS 3.7 % (0.0-5.0); % LYMPHOCYTES 23.9 % (20.0-50.0); % MONOCYTES 7.3 % (2.0-10.0); % NEUTROPHILS 64.6 % (40.0-80.0); HEMATOCRIT 29.8 % (35.0-45.0); HEMOGLOBIN 10.4 gm/dL (11.7-15.5); MEAN CELL VOLUME 93.6 fl (81-100); MEAN CORPUSCULAR HEMOGLOBIN 32.8 pg (27.0-31.0); MEAN PLATELET VOLUME 8.5 fl; PLATELET COUNT 247 Th/cmm (150-400); RED BLOOD COUNT 3.19 Mil/cmm (3.80-5.10); RED CELL DISTRIBUTION WIDTH 12.8 % (11.5-20.0); WHITE BLOOD COUNT 9.2 Th/cmm (4.8-10.8)
[2016-08-30 07:11] LABS: ALKALINE PHOSPHATASE 219 U/L (34-104); ANION GAP 9.8 (7.0-16.0); BILIRUBIN,TOTAL 0.5 mg/dL (0.3-1.0); BUN - UREA NITROGEN 4 mg/dL (7-25); BUN/CREATININE RATIO 5.7; CALCIUM SERUM 8.6 mg/dL (8.6-10.3); CARBON DIOXIDE 23.8 mEq/L (21.0-31.0); CHLORIDE 108 mEq/L (98-107); CREATININE - SERUM 0.7 mg/dL (0.6-1.2); GLUCOSE 87 mg/dL (70-105); POTASSIUM SERUM 3.6 mEq/L (3.5-5.1); SGOT 63 U/L (13-39); SGPT/ALT 163 U/L (7-52); SODIUM SERUM 138 mEq/L (136-145)
[2016-08-30] MEDS: INSULIN ASPART SLIDING SCALE 100 UNITS/ML UNIT SUBQ SCH ×3 (07:52→18:06)
--- NOTE | 2016-08-30 13:37 | Infectious Disease Prog Note ---
Infectious Disease Subjective - Review of Systems Service Date: 08/30/16 Subjective: Patient feels better, there is no fever. Still c/o pain in the left hip. Infectious Disease Objective - Results Result Diagrams: 08/30/16 05:29 08/30/16 05:29 Recent Labs: Laboratory Last Values WBC 9.2 Th/cmm (4.8-10.8) 08/30/16 05:29 RBC 3.19 Mil/cmm (3.80-5.10) L 08/30/16 05:29 Hgb 10.4 gm/dL (11.7-15.5) L 08/30/16 05:29 Hct 29.8 % (35.0-45.0) L 08/30/16 05:29 MCV 93.6 fl (81-100) 08/30/16 05:29 MCH 32.8 pg (27.0-31.0) H 08/30/16 05:29 MCHC Differential 35.0 pg (28.0-36.0) 08/30/16 05:29 RDW 12.8 % (11.5-20.0) 08/30/16 05:29 Plt Count 247 Th/cmm (150-400) 08/30/16 05:29 MPV 8.5 fl 08/30/16 05:29 Neutrophils % 64.6 % (40.0-80.0) 08/30/16 05:29 Band Neutrophils % 5 % (0-10) 08/27/16 06:45 Lymphocytes % 23.9 % (20.0-50.0) 08/30/16 05:29 Monocytes % 7.3 % (2.0-10.0) 08/30/16 05:29 Eosinophils % 3.7 % (0.0-5.0) 08/30/16 05:29 Basophils % 0.5 % (0.0-2.0) 08/30/16 05:29 Neutrophils (Manual) 82 % (40-80) H 08/28/16 06:06 Lymphocytes 10 % (20-50) L 08/28/16 06:06 Monocytes 7 % (2-10) 08/28/16 06:06 Eosinophils 1 % (0-5) 08/28/16 06:06 Platelet Estimate ADEQUATE (NORMAL) 08/28/16 06:06 Platelet Morphology NORMAL (NORMAL) 08/28/16 06:06 RBC Morph Micro Appear NORMAL (NORMAL) 08/28/16 06:06 PT 9.7 SECONDS (9.5-11.5) 08/28/16 07:59 INR 0.98 (0.5-1.4) 08/28/16 07:59 PTT (Actin FS) 30.0 SECONDS (26.0-38.0) 08/28/16 07:59 Sodium 138 mEq/L (136-145) 08/30/16 05:29 Potassium 3.6 mEq/L (3.5-5.1) 08/30/16 05:29 Chloride 108 mEq/L (98-107) H 08/30/16 05:29 Carbon Dioxide 23.8 mEq/L (21.0-31.0) 08/30/16 05:29 Anion Gap 9.8 (7.0-16.0) 08/30/16 05:29 BUN 4 mg/dL (7-25) L 08/30/16 05:29 Creatinine 0.7 mg/dL (0.6-1.2) 08/30/16 05:29 Est GFR ( Amer) > 60.0 ml/min (>90) 08/30/16 05:29 Est GFR (Non-Af Amer) > 60.0 ml/min 08/30/16 05:29 BUN/Creatinine Ratio 5.7 08/30/16 05:29 Glucose 87 mg/dL (70-105) 08/30/16 05:29 POC Glucose 112 MG/DL (70 - 105) H 08/30/16 11:06 Calcium 8.6 mg/dL (8.6-10.3) 08/30/16 05:29 Total Bilirubin 0.5 mg/dL (0.3-1.0) 08/30/16 05:29 AST 63 U/L (13-39) H 08/30/16 05:29 ALT 163 U/L (7-52) H 08/30/16 05:29 Alkaline Phosphatase 219 U/L (34-104) H 08/30/16 05:29 Total Protein 5.7 gm/dL (6.0-8.3) L 08/30/16 05:29 Albumin 2.8 gm/dL (3.7-5.3) L 08/30/16 05:29 Globulin 2.9 gm/dL 08/30/16 05:29 Albumin/Globulin Ratio 1.0 (1.0-1.8) 08/30/16 05:29 Vancomycin Trough 9.9 ug/mL (10-20) L 08/29/16 02:00 Hep Bs Antigen Negative (Negative) 08/27/16 06:05 Hepatitis C Antibody <0.1 s/co ratio (0.0-0.9) 08/27/16 06:05 - Physical Exam Vitals and I&O: Vital Signs Temp 98.7 F 08/30/16 00:00 Pulse 74 08/30/16 00:00 Resp 19 08/30/16 08:00 BP 111/64 08/30/16 00:00 Pulse Ox 96 08/30/16 00:00 Intake & Output 08/29/16 08/30/16 08/30/16 18:59 06:59 18:59 Intake Total 1600 670 Output Total 300 Balance 1600 370 Intake: Intake, IV Amount 1600 550 Piperacillin Sodium/ 100 50 Tazobact 3.375 gm In Sodium Chloride 0.9% 50 ml @ 100 mls/hr IV Q6HR [facility] Rx#:[id number] Sodium Chloride 0.9% 1, 1000 000 ml @ 100 mls/hr IV . Q10H [facility] Rx#:[id number] Vancomycin HCl 0.75 gm In 500 500 Sodium Chloride 0.9% 250 ml @ 165 mls/hr IV Q8HR@ 0300,1100,1900 [facility] Rx#: [id number] Oral 120 Output: Urine 300 Active Medications: Current Medications Acetaminophen (Tylenol) 650 mg PO Q6H PRN PRN Reason: Pain or Fever >101 Stop: 10/25/16 18:46 Last Admin: 08/29/16 06:48 Dose: 650 mg Hydromorphone HCl (Dilaudid) 1 mg IVP Q4HR PRN PRN Reason: severe pain. Stop: 10/27/16 08:17 Last Admin: 08/30/16 11:33 Dose: 1 mg Sodium Chloride (Nacl 0.9%) 1,000 mls @ 100 mls/hr IV .Q10H [facility] Stop: 10/25/16 18:59 Last Admin: 08/30/16 04:05 Dose: 100 mls/hr Piperacillin Sod/Tazobactam (Sod 3.375 gm/ Sodium Chloride) 50 mls @ 100 mls/ hr IV Q6HR [facility] Stop: 10/26/16 11:59 Last Admin: 08/30/16 07:15 Dose: 100 mls/hr Vancomycin HCl 1 gm/ Sodium (Chloride) 250 mls @ 165 mls/hr IV ONCE ONE Stop: 08/30/16 16:30 Vancomycin HCl 1 gm/ Sodium (Chloride) 250 mls @ 165 mls/hr IV Q8H [facility] Stop: 10/30/16 00:00 Insulin Aspart (Novolog Insulin Sliding Scale) 0 units SUBQ ACHS [facility] PRN Reason: Protocol Stop: 10/27/16 16:29 Last Admin: 08/30/16 07:52 Dose: Not Given Miscellaneous (Vancomycin Iv Per Pharmacy) 1 ea [facility] DAILY [facility] Stop: 10/26/16 08:59 Morphine Sulfate (Morphine) 1 mg IVP Q4HR PRN PRN Reason: breakthrough pain. Stop: 10/27/16 08:07 Last Admin: 08/28/16 14:10 Dose: 1 mg Ondansetron HCl (Zofran) 4 mg IV Q6H PRN PRN Reason: Nausea / Vomiting Stop: 10/25/16 18:46 Last Admin: 08/30/16 07:11 Dose: 4 mg Ondansetron HCl (Zofran) 4 mg IV Q24HR PRN PRN Reason: POST OPERATIVE N/V Stop: 10/27/16 08:56 General: no acute distress, well developed, well nourished HEENT: atraumatic, normocephalic, PERRLA, EOMI Neck: supple, no thyromegaly Cardiovascular: S1S2, no regular Lungs: no clear to auscultation bilaterally, no clear to percussion Abdomen: soft, no tender, no distended Extremities: other (dressing in left gluteal area.), no cyanosis, no clubbing, no edema Neurological: awake, alert, oriented Skin: intact - Procedures Procedures: Procedures Procedure Code Date DRAINAGE OF BUTTOCK SUBCU/FASCIA, OPEN APPROACH [id number] 08/26/16 Infectious Disease Assmt/Plan - Problem List Patient Problems: All Active Problems LEFT BUTTOCK SKIN LESION (Acute) - Assessment Assessment: 1. MSSA sepsis. 2. Left gluteal abscess. 3. DM2. - Plan Plan: Change antibiotics to nafcillin.
[2016-08-30] MEDS ORDERED: Nafcillin 2 GM in Sodium Chloride 0.9% 100 ML IV SCH (15:00)
--- NOTE | 2016-09-27 22:05 | Discharge Summary ---
CHIEF COMPLAINT: Abscess in the left buttock. HISTORY OF PRESENT ILLNESS: This is the case of a 40-year-old female, who started with an ampulla in the left buttock; she manipulated the ampulla and it started to grow and became an abscess and really painful. The patient decided to come to ER for evaluation and treatment. HOSPITAL COURSE AND TREATMENT: This patient was admitted in the medical surgical floor. She was started on IV normal saline, IV Zosyn, IV vancomycin, regular diet. Consult with ID Dr. Andrea Domínguez and consult with surgery Dr. Akins was done. The surgeon Dr. Akins did an I and D of the abscess and with this treatment and after 5 days in the hospital, it was considered the patient received the maximum benefit of hospitalization and she can be sent home to continue treatment with primary care physician. On the day of the discharge, the patient was awake, alert, in no acute distress. CONSULTANTS IN THIS CASE: ID, Dr. Andrea Domínguez and Dr. Akins, Surgery. DISPOSITION: The patient is sent home to continue treatment with primary care physician. DIAGNOSIS: Abscess in the buttock. JOB# [id number]
== END 2016-08-30 15:30 | disposition home or self-care (01) | DRG 872 ==
LOC: ER 14:50 → MSI 18:00
PROVIDERS: ADMIT General Practice; ATTEND General Practice
PROC: 0Y910ZZ Drainage of Left Buttock, Open Approach (ICD-10-PCS; principal; 2016-08-28)
DX: A41.01 Sepsis due to Methicillin susceptible Staphylococcus aureus (principal); E11.65 Type 2 diabetes mellitus with hyperglycemia; L02.31 Cutaneous abscess of buttock; L03.317 Cellulitis of buttock; F17.200 Nicotine dependence, unspecified, uncomplicated; T50.905A Adverse effect of unspecified drugs, medicaments and biological substances, initial encounter; R11.0 Nausea; Z83.3 Family history of diabetes mellitus; Z90.49 Acquired absence of other specified parts of digestive tract; Z72.89 Other problems related to lifestyle; Y92.89 Other specified places as the place of occurrence of the external cause
CPT/HCPCS: 10060; 36415-UA; 71010-TC; 76700-TC; 80048-TC; 80053-TC; 80202-TC; 82948-90; 85007-TC; 85025-TC; 85027-TC; 85610-TC; 86803-90; 87070-90; 87075-90; 87086-90; 87205-90; 87340-90; 93005; 96375; A4217; J1170; J1815; J2250; J2270; J2405; J2543; J2704; J3370; J3490; J7030; X6026; X6206; Z7610